=== PATIENT | male | born 2000 | race Caucasian/White ===

== ENCOUNTER 2021-11-02 16:33 | Emergency (ER) | payer OTHER ==
[2021-11-02 16:49] VITALS: BP 117/64; PULSE 89; TEMP 98.5; BMI 32.5
[2021-11-02] MEDS ORDERED: DIPHTH,PERTUSS(ACELL),TET 0.5 ML DISP.SYRIN IM ONE ×3 (17:54→18:07)
== END 2021-11-02 18:26 | disposition home or self-care (01) ==
LOC: JERFT 16:33
PROC: 0HQGXZZ Repair Left Hand Skin, External Approach (ICD-10-PCS; principal; 2021-11-02)
PROC: 3E0234Z Introduction of Serum, Toxoid and Vaccine into Muscle, Percutaneous Approach (ICD-10-PCS; 2021-11-02)
DX: S61.012A Laceration without foreign body of left thumb without damage to nail, initial encounter (principal); W26.0XXA Contact with knife, initial encounter
CPT/HCPCS: 90715; 99284-25

== ENCOUNTER 2021-11-14 14:35 | Emergency (ER) | payer OTHER ==
[2021-11-14 14:50] VITALS: BP 110/73; PULSE 69; TEMP 98.6; BMI 32.5
== END 2021-11-14 16:52 | disposition home or self-care (01) ==
LOC: JERFT 14:35
DX: S61.012A Laceration without foreign body of left thumb without damage to nail, initial encounter (principal); Y99.9 Unspecified external cause status; Z48.02 Encounter for removal of sutures
CPT/HCPCS: 99281-25